=== PATIENT | male | born 1980 | race Caucasian/White ===

== ENCOUNTER 2020-04-22 04:08 | Emergency (ER) | payer SELFPAY | END 2020-04-22 04:37 | disposition home or self-care (01) | LOC: ERS 04:08 | DX: M54.5 Low back pain (principal); F17.210 Nicotine dependence, cigarettes, uncomplicated | CPT/HCPCS: 99283 ==

== ENCOUNTER 2021-01-05 14:52 | Emergency (ER) | payer SELFPAY | END 2021-01-05 16:54 | disposition home or self-care (01) | LOC: ERS 14:52 | DX: K04.7 Periapical abscess without sinus (principal); K02.9 Dental caries, unspecified; F17.210 Nicotine dependence, cigarettes, uncomplicated | CPT/HCPCS: 99283 ==

== ENCOUNTER 2023-04-15 13:06 | Emergency (ER) | payer SELFPAY | END 2023-04-15 13:44 | LOC: ERS 13:06 | DX: Z03.818 Encounter for observation for suspected exposure to other biological agents ruled out (principal) | CPT/HCPCS: 99281 ==